=== PATIENT | male | born 1980 | race Caucasian/White ===

== ENCOUNTER 2024-10-23 23:44 | Emergency (ER) | payer SELFPAY ==
[2024-10-24 00:25] VITALS: BP 150/91; PULSE 68; RESP 18; TEMP 36.8; O2SAT 96; BMI 36.0
--- NOTE | 2024-10-24 00:36 | XR_ITS ---
Examination: CT abdomen and pelvis without contrast. Coronal 3-D reconstructions. Sagittal 2-D reconstructions. Date and time of exam:October 24, 2024 0112 hours INDICATIONS: Severe abdominal pain beginning 4.5 hours ago CTDI: vol (mGy): 11 DLP: (mGycm): 682 Technique: Axial images of the abdomen have been obtained, 3 mm slice thickness Intravenous contrast material has not been administered. Low dose protocols were performed. One or more of the following dose reduction techniques were used; automated exposure control, adjustment of the mA and/or KV according to patient size, use of iterative reconstruction technique. Findings: No focal liver or splenic lesions Fatty infiltration throughout the liver No gallstones No pancreatic mass Mild left hydronephrosis, 3 mm distal left ureteral calculus Normal appendix No bladder mass IMPRESSION: 3 mm distal left ureteral calculus causing mild left hydronephrosis
--- NOTE | 2024-10-24 00:47 | EDNOTE_ITS ---
<Statement entered by Khadijah Tobin MD - 10/24/24 18:32> As co-signing physician, I was present and available for consult prn. I concur with the plan and care as documented by the midlevel provider. ED Abdominal Pain RME/HPI General Chief Complaint: Abdominal Pain Stated complaint: Severe Abdomnal pain for 3hours Time seen by provider: 10/24/24 00:35 Arrival date/time: 10/23/24 23:44 44M with no significant PMH presents to ED with sudden L-sided ab pain and N/V for several hours today. Symptoms improved while waiting in the lobby. Limitations: no limitations Related Data Previous Rx's ?Medication ?Instructions ?Recorded ondansetron 4 mg disintegrating 4 mg PO Q8H PRN nausea and 10/24/24 tablet vomiting #14 tabs tamsulosin 0.4 mg capsule (Flomax) 0.4 mg PO QDAY #20 caps 10/24/24 Allergies Allergy/AdvReac Type Severity Reaction Status Date / Time No Known Allergies Allergy Verified 10/23/24 23:46 Review of Systems Review of Systems Systems Reviewed: All systems reviewed, normal except as documented Constitutional Constitutional: Reports system reviewed and no additional complaints, except as documented, Denies fever(s) and Denies headache(s) ENT Ears, Nose, Mouth, and Throat: Denies disequilibrium and Denies headache(s) Cardiovascular Cardiovascular: Reports system reviewed and no additional complaints, except as documented, Denies chest pain and Denies dyspnea Respiratory Respiratory: Reports system reviewed and no additional complaints, except as documented, Denies cough and Denies dyspnea Gastrointestinal Gastrointestinal: Reports system reviewed and no additional complaints, except as documented, Reports as per HPI, Reports abdominal pain, Reports nausea and Reports vomiting Neurologic Neurologic: Reports system reviewed and no additional complaints, except as documented, Denies confusion, Denies disequilibrium and Denies headache(s) Psychiatric Psychiatric: Denies confusion Past Medical History Social History SMOKING STATUS: Never smoker ED Exam General Limitations: Present no limitations General appearance: Present alert and in no apparent distress Head Head exam: Present atraumatic Eye Eye exam: Present normal appearance, PERRL and EOMI ENT ENT exam: Present normal exam, normal oropharynx and mucous membranes moist Neck Neck exam: Present normal inspection, full ROM and trachea midline Chest Chest inspection: Present normal inspection and symmetric chest wall rise Respiratory Respiratory exam: Present normal lung sounds bilaterally Cardiovascular Cardiovascular exam: Present regular rate, normal rhythm and normal heart sounds Abdominal Exam Abdominal exam: Present soft and normal bowel sounds Extremities Exam Extremities exam: Present normal inspection and full ROM Back Exam Back exam: Present normal inspection and full ROM Neurological Exam Neurological exam: Present alert, oriented X3 and CN II-XII intact Psychiatric Psychiatric exam: Present normal affect and normal mood Skin Skin exam: Present warm, dry, intact and normal color Course Quality Measures none Orders Category Date Time Status CT abdomen pelvis wo con Stat Exams 10/24/24 00:36 Taken CBC Stat Lab 10/24/24 00:40 Completed CMP [Comprehensive Metabolic Panel] Stat Lab 10/24/24 00:40 Completed Lipase Stat Lab 10/24/24 00:40 Completed Urinalysis, C/S if Indicated Stat Lab 10/24/24 00:55 Completed Ketorolac Inj [Toradol Inj] Med 10/24/24 00:36 Discontinued 60 mg IM X1 ONE Ondansetron Odt [Zofran Odt] Med 10/24/24 00:36 Discontinued 4 mg PO X1 ONE Tamsulosin HCl [Flomax] Med 10/24/24 02:22 Discontinued 0.4 mg PO X1 ONE Vital Signs Vital signs: Vital Signs Temperature 98.2 F 10/24/24 00:25 Pulse Rate 68 10/24/24 00:25 Respiratory Rate 18 10/24/24 00:25 Blood Pressure 150/91 H 10/24/24 00:25 Pulse Oximetry (%) 96 10/24/24 00:25 Oxygen Delivery Method Room Air 10/24/24 00:25 O2 at 96% on RA and WNLs Abdominal Pain MDM MDM Narrative MDM Narrative:: 44M with no significant PMH presents to ED with sudden L-sided ab pain and N/V for several hours today. Symptoms improved while waiting in the lobby. Physical exam reveals no ab/flank tenderness. Patient is afebrile, calm, and alert. CT reveals 3 mm L kidney stone. No leukocytosis. CMP unremarkable. Lipase normal. UA blood. Meds and staff counsel given. Patient data External records reviewed:: None Clinical information provided by:: patient Social determinants that could affect healthcare access:: none Patient has the following chronic illnesses:: none How is presenting disease/condition affected by chronic disease/condition?: no chronic disease Evaluation data The following diagnostics were reviewed and interpreted by me:: lab results and radiology exam(s) Lab and/or radiology exams considered but not ordered:: ordered Interpretation Summary: above Medications / Prescriptions Medications or Prescriptions considered but not ordered:: ordered Medication administrations:: Medication Administration History Discontinued Medications Ketorolac Tromethamine (Ketorolac Inj 60 Mg/2 Ml Vial) 60 mg IM X1 ONE Stop: 10/24/24 00:37 Last Admin: 10/24/24 01:36 Dose: 60 mg Documented By: Ondansetron HCl (Ondansetron Odt 4 Mg Tabrap) 4 mg PO X1 ONE; Protocol Stop: 10/24/24 00:37 Last Admin: 10/24/24 00:49 Dose: 4 mg Documented By: Tamsulosin HCl (Tamsulosin Hcl 0.4 Mg Capsule) 0.4 mg PO X1 ONE Stop: 10/24/24 02:23 Last Admin: 10/24/24 02:39 Dose: 0.4 mg Documented By: SF above Consultations Consultation(s) initiated? (list below): No Diagnosis Differential diagnosis abdominal pain: abdominal pain, acute appendicitis, faye culus of kidney, constipation, diverticulitis, gastroenteritis, pancreatitis and small bowel obstruction Most likely diagnosis given after review of the tests above:: kidney stone Admission Indicated Admission indicated?: not indicated Admission Request Was there a request for admission?: No Disposition Plan Disposition Plan: Discharge Discharge Attestation Discharge Attestation: The patient and all family members were given an opportunity to ask questions and understood the discharge instructions. Discharge instructions specifically effects, indications for sooner follow up or return to the emergency department, and the expected course of current diagnosis. Patient condition: Stable Discharge Plan Plan Patient Disposition: HOME (Self Care) Discharge Disposition comment: Stable Prescriptions/Referrals Prescriptions/Med Rec: New tamsulosin [Flomax] 0.4 mg capsule 0.4 mg PO QDAY Qty: 20 0RF ondansetron 4 mg tablet,disintegrating 4 mg PO Q8H PRN (Reason: nausea and vomiting) Qty: 14 0RF Referrals: No Primary/Family,Physician [Primary Care Provider] - In 1 week Problem List Clinical Impression: Calculus of kidney Patient/Caregiver Discharge Instructions Education Materials: ED Kidney Stone w/ Colic Additional Instructions: Please follow-up with PCP within 24-48 hours and return immediately if symptoms worsen. NSAIDs tend to work better for this type of pain. If problem persists, see urologist. Print Language: Maltese Stand Alone Forms: Patient Portal Info Letter PA/ENTRY MANAGER Supervising Physician HUNTER/SANJAY Supervising Physician: Dr. Tobin
[2024-10-24] MEDS: ONDANSETRON ODT 4 MG TABRAP PO (00:49)
[2024-10-24 00:53] LABS: Basophils % (Auto) 0 % (0-2.5); Eosinophils # (Auto) 0.1 Thou/mm3 (0.0-0.5); Eosinophils % (Auto) 1 % (0-10); Hematocrit 38.7 % (41.0-53.0); Hemoglobin 14.2 g/dL (13.5-16.0); Immature Granulocytes % (Auto) 0 % (0-0); Immature Granulocytes Auto 0.04 Thou/mm3 (0.00-0.00); Lymphocytes # (Auto) 1.9 Thou/mm3 (1.0-4.8); Lymphocytes % (Auto) 18 % (10-50); Mean Corpuscular HGB Conc 36.7 g/dl (31.0-37.0); Mean Corpuscular Hemoglobin 31.1 pg (25.0-35.0); Mean Corpuscular Volume 85 fL (80-100); Monocytes # (Auto) 0.9 Thou/mm3 (0.0-0.8); Monocytes % (Auto) 9 % (0-12); Neutrophils # (Auto) 7.5 Thou/mm3 (1.8-7.7); Neutrophils % (Auto) 72 % (37-80); Nucleated Red Blood Cell % 0 /100 WBC (0); Platelet Count 228 Thou/mm3 (140-440); RDW Standard Deviation 39.3 fL (35.1-43.9); Red Blood Count 4.56 Miln/mm3 (4.50-5.90); White Blood Count 10.4 Thou/mm3 (3.8-10.6)
[2024-10-24 01:00] LABS: Collection Type, Urine Clean Catch
[2024-10-24 01:11] LABS: Bilirubin,Urine Negative (Negative); Blood,Urine 3+ (Negative); Calcium Oxalate Crystals,Urine 1+; Culture Indicated,Urine Not Indicated; Glucose, Urine Negative (Negative); Ketones,Urine 1+ (Negative); Leukocyte Esterase,Urine Negative (Negative); Nitrite,Urine Negative (Negative); PH,Urine 5.5 (5.0-7.0); Protein,Urine 1+ (Neg - Trace); RBC,Urine 374 /hpf (0-3); Specific Gravity,Urine 1.031 (1.001-1.035); Squamous Epithelial Cell,Urine 1 /hpf (0-5); Urobilinogen,Urine Negative mg/dL (0.0-1.0); WBC,Urine 7 /hpf (0-5)
[2024-10-24 01:12] LABS: Alanine Aminotransferase 44 U/L (10-49); Albumin, Serum 4.4 gm/dL (3.5-5.0); Albumin/Globulin Ratio 1.6 (1.2-2.2); Alkaline Phosphatase 67 U/L (46-116); Anion Gap 11 (7-16); BUN/Creatinine Ratio 13 Ratio (12-20); Bilirubin,Total 0.5 mg/dL (0.3-1.2); Blood Urea Nitrogen 14 mg/dL (9-23); Carbon Dioxide 27.2 mMol/L (20.0-31.0); Chloride 103 mMol/L (98-107); Creatinine (Component) 1.1 mg/dL (0.6-1.3); Estimated Creatinine Clearance 109.4 mL/min (>60); Globulin 2.7 gm/dL (2.3-3.5); Glucose 165 mg/dL (74-106); Lipase 27 U/L (12-53); Osmolality,Calculated 285 (275-295); Potassium 4.2 mMol/L (3.4-5.1); Sodium 141 mMol/L (136-145); Total Protein 7.1 gm/dL (5.7-8.2); eGFR > 60 See Note
[2024-10-24 01:22] LABS: Color,Urine Amber (Lt Yel-Yel)
[2024-10-24 01:23] LABS: Clarity,Urine Turbid (Clear/Hazy)
[2024-10-24] MEDS: KETOROLAC INJ 60 MG/2 ML VIAL IM (01:36)
--- NOTE | 2024-10-24 02:19 | PRELIM_ITS ---
CT scan of the abdomen and pelvis without intravenous contrast (axial sections with sagittal and coronal reformats) October 24, 2024 0112 hours Clinical History: Left flank pain Comparison: No prior study is available for comparison. Findings: There is a 3 mm obstructing calculus in the left distal ureter (axial images 191/295) causing mild hydroureteronephrosis and periureteric/perinephric fat stranding. The liver, gallbladder, pancreas, spleen, right kidney and adrenals are unremarkable on this noncontrast study. A small hiatal hernia is present. No evidence of bowel obstruction. A moderate amount of fecal material is present in the colon. The appendix is within normal limits (coronal image [id number]). There is no mesenteric or retroperitoneal adenopathy. The urinary bladder is incompletely distended at the time of the examination. There is no free fluid or free air. Degenerative changes are identified in the spine. The lung bases are clear. Please note that evaluation of soft tissue/vascular structures and bowel loops is limited due to absence of IV and oral contrast. Impression: A 3 mm obstructing calculus in the left distal ureter causing mild hydroureteronephrosis. Other findings as described above. Suggest clinical correlation and follow up accordingly. Report Electronically Signed By: Nino Toledo 10/24/2024 2:18:41 AM [EST]
[2024-10-24] MEDS: TAMSULOSIN HCL 0.4 MG CAPSULE PO (02:39)
== END 2024-10-24 02:42 | disposition home or self-care (01) ==
PROVIDERS: Physician Assistant; Emergency Provider Emergency Medicine
DX: N20.0 Calculus of kidney (principal)
CPT/HCPCS: 36415; 74176; 80053; 81001; 83690; 85025; 96372; 99284; J1885; Q0162; A9270